=== PATIENT | male | born 1960 | race Two or more races ===

== ENCOUNTER 2024-04-27 07:10 | Inpatient (IN) | payer OTHER ==
[~2024-04-27] VITALS: Ht 177.8 cm; Wt 90.7 kg
[2024-04-27] MEDS: SODIUM CHLORIDE 0.9% 1,000 ML IV ONE (07:30)
[2024-04-27] MEDS: IOHEXOL 300 MG/ML 100ML BOTTLE IJ ONE (07:56)
[2024-04-27 08:10] VITALS: PULSE 76; RESP 18; O2SAT 92
[2024-04-27] MEDS: ONDANSETRON HCL 4 MG/2 ML VIAL IV ONE (08:15)
[2024-04-27] MEDS: PANTOPRAZOLE 40 MG/10 ML VIAL INJ IV ONE (08:15)
[2024-04-27] MEDS: MORPHINE SULFATE 4 MG/ML SYR/VIAL IV ONE (08:18)
[2024-04-27 08:21] LABS: Basophils # (auto) 0 10 ^3/uL (0-0.2); Basophils % (auto) 0.4 % (0.0-2.0); Eosinophils # (auto) 0.3 10 ^3/uL (0-0.8); Eosinophils % (auto) 2.6 % (0.0-7.0); Hematocrit 37.3 % (41.0-53.0); Hemoglobin 11.6 g/dL (13.5-17.5); Lymphocytes % (auto) 10.6 % (10.0-50.0); Mean Corpuscular Hemoglobin 28.9 pg (28.0-32.0); Mean Corpuscular Volume 93.1 fL (80.0-100.0); Monocytes # (auto) 0.5 10 ^3/uL (0-1.3); Neutrophils # (auto) 7.9 10 ^3/uL (1.6-8.6); Neutrophils % (auto) 81.4 % (37.0-80.0); Nucleated Red Blood Cells % 0.1 %; Red Blood Cells 4.01 10^6/uL (4.5-5.90); Red Cell Distribution Width 15.4 % (11.8-14.3); White Blood Cell 9.6 10^3/uL (4.4-10.8)
[2024-04-27 08:39] LABS: Alanine Aminotransferase 70 U/L (7-40); Albumin 3.7 g/dL (3.2-4.8); Alkaline Phosphatase 190 U/L (46-116); Anion Gap 10 (5-15); Aspartate Aminotransferase 88 U/L (13-40); BUN/Creatinine Ratio 16.7 (10.0-20.0); Blood Urea Nitrogen 64 mg/dL (9-23); Calcium 8.7 mg/dL (8.7-10.4); Carbon Dioxide 17 mmol/L (20-30); Chloride 114 mmol/L (98-107); Glucose 221 mg/dL (74-106); Potassium 5.1 mmol/L (3.5-5.1); Sodium 141 mmol/L (136-145)
[2024-04-27 08:40] LABS: Bilirubin, Total 0.4 mg/dL (0.2-1.0); Total Protein 6.3 g/dL (5.7-8.2)
[2024-04-27 09:06] LABS: Lipase 67 U/L (12-53)
[2024-04-27] MEDS ORDERED: ERGO1CAP23 PO (10:40)
[2024-04-27] MEDS ORDERED: ATOR80TA PO (10:40)
[2024-04-27] MEDS ORDERED: LOSA-535 PO (10:40)
[2024-04-27] MEDS ORDERED: CARV25TA55 PO (10:40)
[2024-04-27] MEDS ORDERED: FURO1TAB32 PO (10:40)
[2024-04-27] MEDS ORDERED: EMPA1TAB PO (10:40)
[2024-04-27] MEDS ORDERED: DOCUSATE SOD 100 MG CAP PO PRN (11:00)
[2024-04-27] MEDS ORDERED: ACETAMINOPHEN 325 MG TAB PO PRN (11:00)
[2024-04-27] MEDS ORDERED: ONDANSETRON HCL 4 MG/2 ML VIAL IV PRN (11:00)
[2024-04-27] MEDS ORDERED: LABETALOL HCL 20 MG/4 ML VL IV PRN (11:00)
[2024-04-27 13:04] LABS: Urine Bacteria None Seen /hpf (None Seen)
[2024-04-27] MEDS: FUROSEMIDE 40 MG/4 ML VIAL IV ONE (13:16)
[2024-04-27 13:23] LABS: Urine Blood 1+ /uL (Negative); Urine Clarity Turbid (Clear); Urine Color Colorless (Yellow); Urine Protein, UAD 3+ (Negative); Urine Specific Gravity 1.017 (1.001-1.035); Urine Urobilinogen Normal (Negative); Urine WBC 88 /hpf (0 - 3)
[2024-04-27 13:28] LABS: Amphetamine Screen, Urine Neg (NEGATIVE); Barbiturate Scree,Urine Neg (NEGATIVE); Benzodiazephine Screen, Urine Neg (NEGATIVE); Cannabinoid Screen, Urine Neg (NEGATIVE); Cocaine Screen, Urine Neg (NEGATIVE); Opiate Scree,Urine Neg (NEGATIVE); Phencyclidine Screen, Urine Neg (NEGATIVE)
[2024-04-27 13:29] LABS: Creatinine, Urine 65.96 mg/dL (30.0-125.0)
[2024-04-27] MEDS: hydrALAZINE HCL 20 MG/ML VL IV PRN (13:30)
[2024-04-27] MEDS: SODIUM CHLOR 0.9% PF (SALINE LOCK) 10ML VIAL/SYR IV SCH (14:00)
[2024-04-27] MEDS ORDERED: hydrALAZINE HCL 20 MG/ML VL IV PRN (16:00)
[2024-04-27] MEDS: NIFEdipine ER 30 MG TAB PO ONE (17:01)
[2024-04-27] MEDS: ERGOCALCIFEROL 50,000 UNIT(1.25MG) CAP PO SCH (17:01)
[2024-04-27] MEDS: HYDROcodone-ACET 5/325MG TAB PO PRN (17:04)
[2024-04-27 21:00] VITALS: PULSE 83; RESP 17; O2SAT 97
[2024-04-27 21:30] VITALS: BP 147/71; PULSE 79; RESP 16; TEMP 98; O2SAT 94
[2024-04-27] MEDS ORDERED: CARVEDILOL 12.5 MG TAB PO SCH (22:00)
[2024-04-27] MEDS: ATORVASTATIN 20 MG TAB PO SCH (22:35)
[2024-04-27] MEDS: FUROSEMIDE 40 MG/4 ML VIAL IV SCH (22:36)
[2024-04-27 22:54] VITALS: BP 147/71; PULSE 66; PULSE 79; RESP 16; RESP 19; TEMP 98; O2SAT 94; O2SAT 96
[2024-04-28] VITALS (12 sets, daily range): BP systolic 122–153; BP diastolic 58–82; PULSE 66–87; RESP 17–19; TEMP 97.4–98.4; O2SAT 95–100
[2024-04-28 06:14] LABS: Anion Gap 10 (5-15); Carbon Dioxide 20 mmol/L (20-30); Chloride 113 mmol/L (98-107); Potassium 4.9 mmol/L (3.5-5.1); Sodium 143 mmol/L (136-145)
[2024-04-28 06:15] LABS: Calcium 8.7 mg/dL (8.7-10.4)
[2024-04-28 06:20] LABS: BUN/Creatinine Ratio 13.6 (10.0-20.0); Blood Urea Nitrogen 56 mg/dL (9-23); Glucose 146 mg/dL (74-106)
[2024-04-28] MEDS: ADENOSINE 77 MG in GIVE UN-DILUTED 0 ML IV STA (09:26)
[2024-04-28 10:23] LABS: Basophils # (auto) 0 10 ^3/uL (0-0.2); Basophils % (auto) 0.5 % (0.0-2.0); Eosinophils # (auto) 0.3 10 ^3/uL (0-0.8); Eosinophils % (auto) 3.7 % (0.0-7.0); Hematocrit 31.3 % (41.0-53.0); Hemoglobin 10.3 g/dL (13.5-17.5); Lymphocytes # (auto) 1.1 10 ^3/uL (0.4-5.4); Lymphocytes % (auto) 14.9 % (10.0-50.0); Mean Corpuscular Hemoglobin 28.8 pg (28.0-32.0); Mean Corpuscular Hgb Conc. 32.9 g/dL (32.0-36.0); Mean Corpuscular Volume 87.6 fL (80.0-100.0); Monocytes # (auto) 0.8 10 ^3/uL (0-1.3); Monocytes % (auto) 10.7 % (0.0-12.0); Neutrophils # (auto) 5.2 10 ^3/uL (1.6-8.6); Neutrophils % (auto) 70.2 % (37.0-80.0); Nucleated Red Blood Cells % 0.1 %; Red Blood Cells 3.58 10^6/uL (4.5-5.90); Red Cell Distribution Width 14.8 % (11.8-14.3); White Blood Cell 7.4 10^3/uL (4.4-10.8)
[2024-04-28] MEDS: NIFEdipine ER 30 MG TAB PO SCH (10:56)
[2024-04-28] MEDS: cefTRIAXone 1GM/50ML D5W 50 ML IV SCH (10:57)
[2024-04-28] MEDS: ENOXAPARIN SOD 30 MG/0.3 ML SYRINGE SC ONE (10:57)
[2024-04-28 11:28] LABS: INR 1.06 (0.9-1.15); Partial Thromboplastin Time 27.8 SEC (24.5-34.5); Prothrombin Time 11.2 sec (9.3-11.8)
[2024-04-28] MEDS ORDERED: ALBUTEROL SULF 2.5 MG/0.5ML(0.5%) NEB SOLN NEB PRN (17:00)
[2024-04-28] MEDS ORDERED: IPRATROPIUM BROM 0.5 MG/2.5ML INH SOL NEB PRN (17:00)
[2024-04-28] MEDS: IPRATROPIUM BROM 0.5 MG/2.5ML INH SOL NEB ONE (18:46)
[2024-04-28] MEDS: ALBUTEROL SULF 2.5 MG/0.5ML(0.5%) NEB SOLN NEB ONE (18:47)
[2024-04-28] MEDS: CARVEDILOL 12.5 MG TAB PO SCH (21:13)
[2024-04-29] VITALS (10 sets, daily range): BP systolic 115–138; BP diastolic 55–67; PULSE 63–75; RESP 16–18; TEMP 97.6–98.6; O2SAT 96–98
[2024-04-29 06:41] LABS: Chloride 110 mmol/L (98-107); Potassium 4.3 mmol/L (3.5-5.1); Sodium 140 mmol/L (136-145)
[2024-04-29 06:42] LABS: Anion Gap 12 (5-15); Calcium 8.7 mg/dL (8.7-10.4); Carbon Dioxide 18 mmol/L (20-30)
[2024-04-29 06:47] LABS: Glucose 141 mg/dL (74-106)
[2024-04-29 06:48] LABS: BUN/Creatinine Ratio 13.2 (10.0-20.0); Blood Urea Nitrogen 57 mg/dL (9-23)
[2024-04-29] MEDS: ENOXAPARIN SOD 30 MG/0.3 ML SYRINGE SC SCH (09:58)
[2024-04-30 09:29] LABS: Hepatitis B Core Total AB Negative (Negative)
[2024-04-30 11:37] LABS: Hepatitis A Total Antibody Positive (Negative); Hepatitis B Surface Antibody Negative (Negative); Hepatitis B Surface Antigen Negative (Negative); Hepatitis C Antibody Negative (Negative)
== END 2024-04-29 17:10 | disposition home or self-care (01) | DRG 70 ==
LOC: ER 07:10 → EDBD 07:10 → TELE 11:01 → TELE-EAST 21:24
PROVIDERS: ADMIT Internal Medicine; ATTEND Internal Medicine
DX: G93.41 Metabolic encephalopathy (principal); I21.A1 Myocardial infarction type 2; N17.0 Acute kidney failure with tubular necrosis; I13.0 Hypertensive heart and chronic kidney disease with heart failure and stage 1 through stage 4 chronic kidney disease, or unspecified chronic kidney disease; N39.0 Urinary tract infection, site not specified; N18.4 Chronic kidney disease, stage 4 (severe); I50.32 Chronic diastolic (congestive) heart failure; E11.22 Type 2 diabetes mellitus with diabetic chronic kidney disease; E66.9 Obesity, unspecified; E78.5 Hyperlipidemia, unspecified; I16.0 Hypertensive urgency; R74.01 Elevation of levels of liver transaminase levels; K76.0 Fatty (change of) liver, not elsewhere classified; I25.5 Ischemic cardiomyopathy; Z79.84 Long term (current) use of oral hypoglycemic drugs; Z68.28 Body mass index [BMI] 28.0-28.9, adult; Z79.4 Long term (current) use of insulin; Z79.899 Other long term (current) drug therapy
CPT/HCPCS: 36415; 70450; 71045; 74176; 76700; 78452; 80048; 80053; 80061; 80307; 81001; 82570; 83036; 83605; 83690; 83735; 83880; 84156; 84300; 84443; 84484; 85025; 85610; 85730; 86704; 86706; 86708; 86803; 87340; 93005; 93017; 93306; 93886; 94640; 96361; 96374; 96375; G0378; J0153; J2405; J2470